=== PATIENT | female | born 1975 | race Caucasian/White ===

== ENCOUNTER 2019-10-07 15:52 | Emergency (ER) | payer BC, SELFPAY ==
[~2019-10-07] VITALS: Ht 160 cm; Wt 75.3 kg
[2019-10-07 16:16] VITALS: Ht 160 cm; Wt 75.3 kg
[2019-10-07 17:14] LABS: BASOPHIL % 0.3 % (0-2); PLATELET COUNT 310 x10^3mcL (130-400)
[2019-10-07 17:19] LABS: microscopic required? NO
[2019-10-07 17:37] LABS: UA SPECIFIC GRAVITY 1.025 (1.005-1.035); urine erythrocyte NEGATIVE (NEGATIVE)
[2019-10-07 18:32] LABS: C REACTIVE PROTEIN 0.8 mg/dL (<=0.9)
[2019-10-07 18:59] LABS: CALCIUM 8.9 mg/dL (8.5-10.1); CARBON DIOXIDE 30.3 mmol/L (21-32); CHLORIDE SERUM 102 mmol/L (98-107); CREATININE SERUM 0.8 mg/dL (0.6-1.0); GFR1 > 60 mL/min; GLUCOSE SERUM 105 mg/dL (74-106); POTASSIUM SERUM 4.1 mmol/L (3.5-5.1); SODIUM SERUM 136 mmol/L (136-145)
[2019-10-07 19:04] LABS: ALBUMIN 3.8 g/dL (3.4-5.0); ALKALINE PHOSPHATASE 62 U/L (46-116); ALT/SGPT 18 U/L (14-59); AST/SGOT 9 U/L (15-37); BILIRUBIN TOTAL 0.28 mg/dL (0.20-1.00); TOTAL PROTEIN, SERUM 7.4 g/dL (6.4-8.2)
[2019-10-07 19:14] VITALS: BP 101/65
== END 2019-10-07 19:14 | disposition home or self-care (01) ==
LOC: ED 15:52
PROVIDERS: Emergency Medicine
DX: U07.1 COVID-19 (principal); J40 Bronchitis, not specified as acute or chronic; F41.9 Anxiety disorder, unspecified
CPT/HCPCS: 36600; 83880; 85378; 87804; Q0092; U0003-CS